=== PATIENT | male | born 1945 | race Two or more races ===

== ENCOUNTER 2018-05-27 16:35 | Inpatient (IN) | payer MEDICARE, MEDICAID ==
[~2018-05-27] VITALS: Ht 162.6 cm; Wt 62.1 kg
--- NOTE | 2018-05-27 16:41 | NUR ---
PT PAULINE FROM [facility] FOR DIZZINESS AND SOB, PT AAOX2-3, RESPRIATIONS EVEN AND UNLABORED, NO SOB, NAD NOTED, PT ON MONITOR, VSS, AWAITING ER PROVIDER SIMRANAL
[2018-05-27 17:44] LABS: BASOPHILS # (AUTO) 0.1 /CMM (0.0-0.2); BASOPHILS % (AUTO) 1.2 % (0.0-2.0); EOSINOPHILS % (AUTO) 3.8 % (0.0-6.0); HEMATOCRIT 43 % (39-51); HEMOGLOBIN 14.4 g/dL (13.5-17.5); LYMPHOCYTES # (AUTO) 1.3 /CMM (0.8-4.8); LYMPHOCYTES % (AUTO) 17.1 % (20.0-44.0); MEAN CORPUSCULAR HGB CONC 33 g/dl (31.0-36.0); MEAN CORPUSCULAR VOLUME 92 fL (80-96); MONOCYTES # (AUTO) 0.8 /CMM (0.1-1.30); NEUTROPHILS % (AUTO) 66.9 % (43.0-81.0); PLATELET COUNT (AUTO) 300 /CMM (150-450); RED BLOOD CELL COUNT(AUTO) 4.69 MIL/uL (4.5-6.0); WHITE BLOOD COUNT (AUTO) 7.5 K/uL (4.3-11.0)
[2018-05-27] MEDS ORDERED: methylPREDNISolone SOD SUCC 125 MG/2ML VIAL ONE (17:46)
[2018-05-27 17:52] LABS: CARBON DIOXIDE 28 mmol/L (21-32); CHLORIDE 101 mmol/L (98-107); CREATININE 1.1 mg/dL (0.6-1.3); GLUCOSE 82 mg/dL (74-106); POTASSIUM 3.9 mmol/L (3.5-5.1); SODIUM SERUM 135 mmol/L (136-145); UREA NITROGEN, BLOOD 17 mg/dL (7-18)
[2018-05-27 17:57] LABS: ALANINE AMINOTRANSFERASE 16 U/L (12-78); ALBUMIN 3.8 g/dL (3.4-5.0); ALKALINE PHOSPHATASE 65 U/L (46-116); ASPARTATE AMINOTRANSFERASE 15 U/L (15-37); BILIRUBIN,DIRECT 0.1 mg/dL (0.0-0.2); BILIRUBIN,TOTAL 0.3 mg/dL (0.2-1.0); TOTAL PROTEIN, SERUM 7.2 g/dL (6.4-8.2)
[2018-05-27] MEDS ORDERED: ALBUTEROL FS 2.5 MG/3 ML VIAL.NEB ONE (18:00)
[2018-05-27] MEDS ORDERED: IPRATROPIUM NEB FS 0.5 MG/2.5 ML AMPUL.NEB ONE (18:00)
[2018-05-27] MEDS ORDERED: methylPREDNISolone SOD SUCC 125 MG/2ML VIAL IV ONE (18:00)
[2018-05-27] MEDS ORDERED: IPRATROPIUM NEB FS 0.5 MG/2.5 ML AMPUL.NEB NEB ONE (18:00)
[2018-05-27] MEDS ORDERED: ALBUTEROL FS 2.5 MG/3 ML VIAL.NEB NEB ONE (18:00)
--- NOTE | 2018-05-27 19:17 | NUR ---
CALLED [employer] LABORER PIE BAKERY WAS PAGED.
[2018-05-27] MEDS ORDERED: RANI150C4 PO (20:21)
[2018-05-27] MEDS ORDERED: CYAN100T PO (20:21)
[2018-05-27] MEDS ORDERED: CYCL30DR EACHEYE (20:21)
[2018-05-27] MEDS ORDERED: MYRBETRIQ PO (20:21)
[2018-05-27] MEDS ORDERED: TRAZ150T75 PO (20:21)
[2018-05-27] MEDS ORDERED: CLON0.5T12 PO (20:21)
[2018-05-27] MEDS ORDERED: ALBU18HF2 IH (20:21)
[2018-05-27] MEDS ORDERED: BUSP15TA3 PO (20:21)
[2018-05-27] MEDS ORDERED: AMLO5TAB9 PO (20:21)
[2018-05-27] MEDS ORDERED: ESCI10TA PO (20:21)
[2018-05-27] MEDS ORDERED: OLME5TAB6 PO (20:21)
[2018-05-27] MEDS ORDERED: CALC500T51 PO (20:21)
[2018-05-27] MEDS ORDERED: UMEC1BLS IH (20:21)
[2018-05-27] MEDS ORDERED: MELO-107 PO (20:21)
--- NOTE | 2018-05-27 20:22 | NUR ---
REPORT GIVEN TO CAIT SQUIRES FOR DANIEL FOR 327-2 TELE
[2018-05-27] MEDS ORDERED: MAGNESIUM HYDROXIDE 30 ML UDC PO PRN (20:30)
[2018-05-27] MEDS ORDERED: Z GUARD REMEDY 2 OZ OINT TP PRN (20:30)
[2018-05-27] MEDS ORDERED: ONDANSETRON HCL/PF 4 MG/2 ML VIAL IVP PRN (20:30)
[2018-05-27] MEDS ORDERED: MAG HYDROX/AL HYDROX/SIMETH 30 ML UDC PO PRN (20:30)
[2018-05-27] MEDS ORDERED: ACETAMINOPHEN 325 MG TABLET PO PRN (20:30)
[2018-05-27 20:35] VITALS: BP 166/82
--- NOTE | 2018-05-27 20:35 | NUR ---
CHARGE LOADERBENZOL STILL OPERATOR NOTES PATIENT CAME TO UNIT VIA ZULAY, ALERT, ORIENTED X 3. PATIENT USES THE WALKER TO AMBULATE, WALKER AT BEDSIDE. SOB ON EXERTION. PATIENT ABLE TO VERBALIZE NEEDS. PATIENT REPORTS THAT HE IS RESIDING IN [facility] BUT WAS IN [facility] IN [place] FOR AN INDIVIDUALIZED PROGRAM FOR HIS MENTAL PROBLEMS. SKIN ASSESSMENT DONE. PATIENT HAS SCABS ON HEAD, FOREHEAD AND CHEEK, HE SAID HE HAS BEEN SCRATCHING IT. PICTURES TAKEN, ATTACHED TO CHART. ORIENTED TO CALL VILLANUEVA, PLACED WITHIN EASY REACH. BED IN LOW, LOCKED POSITION. WILL CONTINUE TO MONITOR ACCORDINGLY
--- NOTE | 2018-05-27 20:45 | NUR ---
CUSTOMER EXPERIENCE ASSOCIATE NOTES TELE MONITOR IN PLACE, SINUS RHYTHM 97
[2018-05-27] MEDS: ENOXAPARIN SODIUM 40 MG/0.4 ML DISP.SYRIN SQ SCH (21:17)
--- NOTE | 2018-05-27 22:25 | NUR ---
GROUP WORKER NOTES MRSA SWAB DONE. URINE SAMPLE COLLECTED AND SENT TO LAB
[2018-05-27 22:40] LABS: APPEARANCE,URINE CLEAR (CLEAR); BILIRUBIN,URINE NEGATIVE (NEGATIVE); BLOOD, URINE NEGATIVE Ery/uL (NEGATIVE); COLOR,URINE YELLOW (YELLOW); KETONES,URINE NEGATIVE (NEGATIVE); LEUKOCYTE ESTERASE ,URINE NEGATIVE (NEGATIVE); NITRITE, URINE NEGATIVE (NEGATIVE); PH,URINE 6.5 (5.0-8.0); PROTEIN,URINE NEGATIVE (NEGATIVE); UGLUCOSE 3+ mg/dL (NEGATIVE); UROBILINOGEN,URINE 0.2 EU/dL (0.2)
[2018-05-27 22:45] LABS: BACTERIA,URINE Few /HPF (None Seen); SQUAMOUS EPITHELIAL CELL,UR Rare /HPF (None Seen)
[2018-05-27] MEDS: ZOLPIDEM TARTRATE 5 MG TABLET PO PRN (23:30)
[2018-05-28] VITALS: BP 136/76
[2018-05-28 04:00] VITALS: BP 139/75
--- NOTE | 2018-05-28 06:45 | NUR ---
LINDERMAN OPERATOR CLOSING NOTES PATIENT RESTING IN BED, ALERT AND ORIENTED X 3. BREATHING EVEN AND UNLABORED. NO COMPLAINTS OF PAIN OR DISCOMFORT OF THIS TIME. ON O2 VIA NC AT 2LPM, NEEDED. IV ON LAC G#20, INTACT AND PATENT. TELE MONITOR IN PLACE, SINUS RHYTHM 76. ALL NEEDS ATTENDED TO. ALL DUE MEDICATIONS GIVEN ORDERED. CALL VILLANUEVA WITHIN REACH. BED IN LOW, LOCKED POSITION. WILL ENDORSE DANIEL TO ONCOMING RN.
[2018-05-28] MEDS: ALBUTEROL FS 2.5 MG/0.5 ML VIAL.NEB NEB SCH ×4 (07:24→19:39)
[2018-05-28] MEDS: IPRATROPIUM NEB FS 0.5 MG/2.5 ML AMPUL.NEB NEB SCH ×4 (07:24→19:39)
--- NOTE | 2018-05-28 07:41 | NUR ---
AUTOMOTIVE ELECTRICAL FITTER OPENING NOTE RECEIVED PT IN BED, ALERT AND ORIENTED X4. DENIES N/V, CHEST PAIN, SOB. BREATHING IS EVEN AND UNLABORED ON ROOM AIR, NC AT THE BEDSIDE PRN FOR SOB. PT ON VOICE AND DATA TECHNICIAN, SR W/ PAC, HR 75. L AC #20G IV IS SALINE LOCKED WITHOUT REDNESS OR SWELLING. REVIEWED UNIT ORIENTATION AND USE OF CALL LIGHT WITH PT WHO VERBALIZED UNDERSTANDING. ALL NEEDS ATTENDED TO, BED IS LOCKED AND IN LOWEST POSITION, SIDE RAILS UP X2, BED ALARM ON, CALL LIGHT WITHIN REACH.
[2018-05-28 07:43] LABS: BASOPHILS % (AUTO) 0.3 % (0.0-2.0); HEMATOCRIT 42 % (39-51); HEMOGLOBIN 13.7 g/dL (13.5-17.5); LYMPHOCYTES # (AUTO) 0.8 /CMM (0.8-4.8); MEAN CORPUSCULAR HGB CONC 33 g/dl (31.0-36.0); MEAN CORPUSCULAR VOLUME 91 fL (80-96); MONOCYTES # (AUTO) 0.1 /CMM (0.1-1.30); MONOCYTES % (AUTO) 1.4 % (2.0-12.0); NEUTROPHILS # (AUTO) 7.8 /CMM (1.8-8.9); NEUTROPHILS % (AUTO) 89.3 % (43.0-81.0); PLATELET COUNT (AUTO) 293 /CMM (150-450); RED BLOOD CELL COUNT(AUTO) 4.58 MIL/uL (4.5-6.0); WHITE BLOOD COUNT (AUTO) 8.8 K/uL (4.3-11.0)
[2018-05-28 07:55] LABS: CALCIUM, SERUM 8.9 mg/dL (8.5-10.1); CARBON DIOXIDE 26 mmol/L (21-32); CHLORIDE 100 mmol/L (98-107); CREATININE 0.9 mg/dL (0.6-1.3); GLUCOSE 143 mg/dL (74-106); MAGNESIUM 1.9 mg/dL (1.8-2.4); PHOSPHORUS 3.4 mg/dL (2.5-4.9); POTASSIUM 4.4 mmol/L (3.5-5.1); SODIUM SERUM 133 mmol/L (136-145); UREA NITROGEN, BLOOD 18 mg/dL (7-18)
[2018-05-28 08:00] VITALS: BP 136/78
[2018-05-28 08:09] LABS: CHOLESTEROL 129 mg/dL (<200); HDL CHOLESTEROL 75 mg/dL (40-60); LDL 53 mg/dL (0-99); THYROID STIMULATING HORMONE 1.088 uIU/mL (0.358-3.74); TRIGLYCERIDES 30 mg/dL (30-150)
[2018-05-28] MEDS: methylPREDNISolone SOD SUCC 40 MG/ML VIAL IV SCH ×3 (08:26→16:20)
[2018-05-28 08:38] LABS: BAND % (MANUAL) 3 % (0.0-5.0); LYMPHOCYTES % (MANUAL) 7 % (16-48); MONOCYTES % (MANUAL) 1 % (0-11.0); NEUTROPHILS % (MANUAL) 89 (42-76)
--- NOTE | 2018-05-28 09:04 | NUR ---
WOUND CARE CONSULT: PT PRESENTS WITH SCRATCH BEARD ON FOREHEAD AND TOP OF HEAD. PT STATES THAT HE SCRATCHES HIS SKIN. PT CONTINENT AT THIS TIME AND ABLE TO ASSIST WITH TURNING AND REPOSITIONING IN BED. WILL SEE PRN. RECOMMENDATIONS MADE FOR SKIN PROTECTION. MD IN AGREEMENT WITH PLAN OF CARE.
--- NOTE | 2018-05-28 11:00 | NUR ---
DAM TENDER NOTE AT THE BEDSIDE TO EVALUATE PT, REQUESTED HOME MED RECON TO BE COMPLETED PER SHE WILL COMPLETE.
--- NOTE | 2018-05-28 11:45 | NUR ---
MS RN NOTE SPOKE WITH JOSE FROM [facility] REQUESTED BY THE PT. PER JOSE, THE STAFF IS AWARE OF PT BEING AT [facility]. INFORMED PT.
--- NOTE | 2018-05-28 13:12 | NUR ---
MS RN NOTE CONTACTED DR. MANDUJANO REGARDING PT REQUEST FOR PRN FOR ANXIETY. AWAITING RESPONSE.
--- NOTE | 2018-05-28 13:18 | NUR ---
MS RN NOTE ASSISTED PT TO WALK DOWN HALLWAY WITH WALKER REQUESTED BY PT FOR ANXIETY AND RESTLESSNESS. THE PT WAS ASSISTED BACK TO THE CHAIR AT HIS BEDSIDE WITHOUT INCIDENT. NC REPLACED, AND CALL LIGHT WITHIN REACH.
[2018-05-28] MEDS: HYDROCODONE/APAP 5/325MG 1 EACH TABLET PO PRN (14:10)
--- NOTE | 2018-05-28 14:35 | NUR ---
Social service consult requested by REHAN Lyles due to pt. coming from [facility]. Pt. is a 73 year old male who was admitted to [facility] for COPD Exacerbation. MICHELLE met with pt. bedside. Pt. was sitting on his bed watching TV. Pt. is alert and oriented x 3. Pt. is soft spoken and appears anxious. Pt. states he resides at [facility] care located at [address] [place] [address] [place] [address] [facility] and care Component Assembler is Traci . Pt. states he receives outpatient mental health services at [facility]. Pt. states he has a diagnosis of Anxiety and Depression and takes mediation, however he cannot remember the names of the medication. Pt. denies any suicidal and homicidal ideations and visual/auditory hallucinations at this time. Pt. states, he would like to go back to his [facility] and care once he is medically cleared. MICHELLE updated window caser Roxie Baez regarding pt's discharge plan.
--- NOTE | 2018-05-28 14:36 | NUR ---
MS RN PAGED [employer] PAGED [employer] FOR REGARDING HOME MED RECON AND PT REQUEST FOR MEDICATION FOR ANXIETY, AWAITING RESPONSE.
--- NOTE | 2018-05-28 15:06 | NUR ---
MS RN NOTE PT STATED HE HAS NOT HAD A BM FOR THREE DAYS, OFFERED MILK OF MAG ORDERED FOR CONSPITATION AND PROVIDED EDUCATION REGARDING USE OF PRUNE JUICE, AMBULATION, AND ENCOURAGING FLUID INTAKE. PT STATED HE WOULD LIKE TO TRY DRINKING PRUNE JUICE FIRST PRIOR TO PRN MEDICATION. THE NURSE PROVIDED PRUNE JUICE REQUESTED, WILL CONTINUE TO MONITOR.
--- NOTE | 2018-05-28 15:13 | NUR ---
MS RN NOTE SPOKE WITH AND RECEIVED ORDERS FOR ATIVAN 0.5MG PO Q15 FOR ANXIETY, CONFIRMED VIA TELEPHONE READ BACK. PER SHE WILL DO THE HOME MEDICATION RECON WELL.
[2018-05-28] MEDS ORDERED: LORAZEPAM 0.5 MG TABLET PO PRN (15:30)
[2018-05-28 16:00] VITALS: BP 122/68
--- NOTE | 2018-05-28 18:39 | NUR ---
MS RN CLOSING NOTE PT IN BED, ALERT AND ORIENTED X4. DENIES N/V, CHEST PAIN, SOB. BREATHING IS EVEN AND UNLABORED ON 1L NC. L AC #20G IV IS SALINE LOCKED WITHOUT REDNESS OR SWELLING. REVIEWED UNIT ORIENTATION AND USE OF CALL LIGHT WITH PT WHO VERBALIZED UNDERSTANDING. ADLS PROVIDED, PT ASSISTED TO REPOSITION Q2H FOR THE DURATION OF THE SHIFT. ALL NEEDS ATTENDED TO, BED IS LOCKED AND IN LOWEST POSITION, SIDE RAILS UP X2, BED ALARM ON, CALL LIGHT WITHIN REACH. WILL ENDORSE TO FORENSIC SPECIALIST NURSE FOR CONTINUITY OF CARE.
--- NOTE | 2018-05-28 19:45 | NUR ---
MS RN NOTES RECEIVED PATIENT IN BED, ALERT AND ORIENTED X4. DENIES N/V, CHEST PAIN, SOB. BREATHING IS EVEN AND UNLABORED ON 1L NC. L AC #20G IV IS SALINE LOCKED WITHOUT REDNESS OR SWELLING. REVIEWED UNIT ORIENTATION AND USE OF CALL LIGHT WITH PT WHO VERBALIZED UNDERSTANDING. BED IS LOCKED AND IN LOWEST POSITION, SIDE RAILS UP X2, BED ALARM ON, CALL LIGHT WITHIN REACH. WILL MONITOR ACCORDINGLY
[2018-05-28 20:22] VITALS: BP 153/84
[2018-05-28] MEDS: ENOXAPARIN SODIUM 40 MG/0.4 ML DISP.SYRIN SQ SCH (21:31)
[2018-05-28 22:00] VITALS: BP 153/84
[2018-05-28] MEDS ORDERED: clonazePAM 0.5 MG TABLET PO PRN (22:30)
[2018-05-29] MEDS: ZOLPIDEM TARTRATE 5 MG TABLET PO PRN ×2 (00:18→23:01)
[2018-05-29] MEDS ORDERED: ALBUTEROL FS 2.5 MG/3 ML VIAL.NEB NEB PRN (01:30)
--- NOTE | 2018-05-29 07:03 | NUR ---
MS RN NOTES PATIENT IN BED, ALERT AND ORIENTED X4. DENIES N/V, CHEST PAIN, SOB. BREATHING IS EVEN AND UNLABORED ON 1L NC. L AC #20G IV IS SALINE LOCKED WITHOUT REDNESS OR SWELLING. REVIEWED UNIT ORIENTATION AND USE OF CALL LIGHT WITH PT WHO VERBALIZED UNDERSTANDING. BED IS LOCKED AND IN LOWEST POSITION, SIDE RAILS UP X2, BED ALARM ON, CALL LIGHT WITHIN REACH. WILL ENDORSE TO AM NURSE FOR CONTINUITY OF CARE.
[2018-05-29 08:00] VITALS: BP 146/78
[2018-05-29 08:02] LABS: BASOPHILS # (AUTO) 0.1 /CMM (0.0-0.2); BASOPHILS % (AUTO) 0.3 % (0.0-2.0); HEMATOCRIT 34 % (39-51); HEMOGLOBIN 11.3 g/dL (13.5-17.5); LYMPHOCYTES # (AUTO) 1.8 /CMM (0.8-4.8); LYMPHOCYTES % (AUTO) 8.4 % (20.0-44.0); MEAN CORPUSCULAR HGB CONC 33 g/dl (31.0-36.0); MEAN CORPUSCULAR VOLUME 92 fL (80-96); MONOCYTES # (AUTO) 2.8 /CMM (0.1-1.30); MONOCYTES % (AUTO) 13.1 % (2.0-12.0); NEUTROPHILS # (AUTO) 16.5 /CMM (1.8-8.9); NEUTROPHILS % (AUTO) 78.2 % (43.0-81.0); PLATELET COUNT (AUTO) 341 /CMM (150-450); RED BLOOD CELL COUNT(AUTO) 3.73 MIL/uL (4.5-6.0)
[2018-05-29] MEDS: ALBUTEROL FS 2.5 MG/0.5 ML VIAL.NEB NEB SCH ×4 (08:02→20:07)
[2018-05-29] MEDS: IPRATROPIUM NEB FS 0.5 MG/2.5 ML AMPUL.NEB NEB SCH ×4 (08:02→20:07)
[2018-05-29 08:07] LABS: CALCIUM, SERUM 8.6 mg/dL (8.5-10.1); CARBON DIOXIDE 25 mmol/L (21-32); CHLORIDE 101 mmol/L (98-107); CREATININE 0.8 mg/dL (0.6-1.3); GLUCOSE 94 mg/dL (74-106); MAGNESIUM 1.7 mg/dL (1.8-2.4); PHOSPHORUS 2.9 mg/dL (2.5-4.9); POTASSIUM 4.4 mmol/L (3.5-5.1); SODIUM SERUM 135 mmol/L (136-145); UREA NITROGEN, BLOOD 53 mg/dL (7-18)
[2018-05-29] MEDS ORDERED: busPIRone HCL 10 MG TABLET PO SCH (09:00)
[2018-05-29] MEDS: busPIRone 5 MG TABLET PO SCH ×4 (09:07→21:07)
[2018-05-29] MEDS: HYDROCODONE/APAP 5/325MG 1 EACH TABLET PO PRN (09:07)
[2018-05-29] MEDS: methylPREDNISolone SOD SUCC 40 MG/ML VIAL IV SCH (09:07)
[2018-05-29] MEDS: ESCITALOPRAM OXALATE (10 MG) 10 MG TABLET PO SCH (09:07)
[2018-05-29] MEDS: FAMOTIDINE (20 MG) 20 MG TABLET PO SCH (09:08)
[2018-05-29] MEDS: CYANOCOBALAMIN 100 MCG TABLET PO SCH (09:08)
[2018-05-29] MEDS: AMLODIPINE BESYLATE 5 MG TABLET PO SCH (09:08)
[2018-05-29] MEDS: CALCIUM CARBONATE (1250) 500 MG TABLET PO SCH (09:08)
[2018-05-29] MEDS: Magnesium 1GM/D5W 100ML PREMIX 100 ML IV SCH ×2 (13:01→13:14)
--- NOTE | 2018-05-29 15:30 | NUR ---
IV LEAKING AND INFILTRATED . CHARGE NURSE AND DR. Jg HAY NOTIFIED . PER PHONE ORDER BY DR. Gregorio, LUIS STOP IVPB'S AND GIVE PO MAG [phone] BID . ISSA ON LEFT ARM REMOVED. CATHETER INTACT . NO PAIN OR TENDERNESS TO THE SITE.
[2018-05-29 16:00] VITALS: BP 158/86
[2018-05-29] MEDS: MAGNESIUM OXIDE 400 MG TABLET PO SCH ×2 (16:36→16:50)
--- NOTE | 2018-05-29 19:30 | NUR ---
RN NOTES RECEIVED PT. AWAKE ON BED, A/OX3, DENIES PAIN, NO SOB, CALL LIGHT WITHIN REACH, [id number], CONTINUE TO MONITOR
[2018-05-29 20:00] VITALS: BP 122/71
[2018-05-29] MEDS: ENOXAPARIN SODIUM 40 MG/0.4 ML DISP.SYRIN SQ SCH (21:08)
[2018-05-29] MEDS ORDERED: TRAZODONE 50 MG TABLET PO SCH (22:00)
--- NOTE | 2018-05-29 23:03 | NUR ---
RN NOTES PT. ASKED FOR SLEEPING PILL- AMBIEN 5 MG PO GIVEN ORDERED, V/S STABLE
--- NOTE | 2018-05-30 06:45 | NUR ---
RN NOTES SLEEPING BUT AROUSABLE, DENIES PAIN, NO SOB, MORNING CARE RENDERED, PT. NEEDS ATTENDED
[2018-05-30 07:19] LABS: CALCIUM, SERUM 8.3 mg/dL (8.5-10.1); CARBON DIOXIDE 29 mmol/L (21-32); CHLORIDE 103 mmol/L (98-107); GLUCOSE 87 mg/dL (74-106); MAGNESIUM 2.1 mg/dL (1.8-2.4); PHOSPHORUS 3.2 mg/dL (2.5-4.9); POTASSIUM 4.3 mmol/L (3.5-5.1); SODIUM SERUM 138 mmol/L (136-145); UREA NITROGEN, BLOOD 31 mg/dL (7-18)
[2018-05-30] MEDS: ALBUTEROL FS 2.5 MG/0.5 ML VIAL.NEB NEB SCH ×3 (07:41→13:38)
[2018-05-30] MEDS: IPRATROPIUM NEB FS 0.5 MG/2.5 ML AMPUL.NEB NEB SCH ×3 (07:41→13:38)
[2018-05-30 08:00] VITALS: BP 132/74
--- NOTE | 2018-05-30 08:00 | NUR ---
m/s counter control operator: initial assessment received pt in bed awake, a/ox3. no c/o sob or any discomfort. instructed to call for assistance. will continue to monitor.
[2018-05-30] MEDS: busPIRone 5 MG TABLET PO SCH ×3 (08:29→16:46)
[2018-05-30] MEDS: ESCITALOPRAM OXALATE (10 MG) 10 MG TABLET PO SCH (08:29)
[2018-05-30] MEDS: AMLODIPINE BESYLATE 5 MG TABLET PO SCH (08:30)
[2018-05-30] MEDS: MAGNESIUM OXIDE 400 MG TABLET PO SCH ×2 (08:30→16:46)
[2018-05-30] MEDS: FAMOTIDINE (20 MG) 20 MG TABLET PO SCH (08:31)
[2018-05-30] MEDS: CYANOCOBALAMIN 100 MCG TABLET PO SCH (08:31)
[2018-05-30] MEDS ORDERED: predniSONE 20 MG TABLET PO SCH (09:00)
[2018-05-30] MEDS: CALCIUM CARBONATE (1250) 500 MG TABLET PO SCH (09:05)
--- NOTE | 2018-05-30 12:00 | NUR ---
m/s transformer coil winder: notes lunch served. pt sitting up at the edge of the bed. instructed to call for assistance. will continue to monitor.
--- NOTE | 2018-05-30 13:57 | NUR ---
RT NOTE PT BREATHING TX GIVEN EARLY DUE TO WHEEZING UPON AUSCULTATION. PT REQUEST WELL DUE TO FEELING SOB AFTER STANDING. NO DISTRESS NOTED. PT AWAKE AND ALERT. RN AWARE. Addendum: 05/30/18 at 1359 by HARITHA GERONIMO RT Amended: Links added.
--- NOTE | 2018-05-30 15:00 | NUR ---
m/s pipe stripper: notes harinder (case management) called and informed me that pt is for d'c planning to [facility] [place] ([phone]) B&C networking administrator is aware and wants pt to go to rehab and then back to board and care. dr. chery will put the order in per case management. awaiting order. pt made aware.
[2018-05-30 15:49] VITALS: BP 108/67
--- NOTE | 2018-05-30 15:50 | NUR ---
m/s cryptographic center specialist: notes report given to melba (rn mainspring fabrication supervisor) for continuity of care.
--- NOTE | 2018-05-30 17:00 | NUR ---
m/s sql server consultant: notes dr. chery inserting order to discharge pt and left message re: d'c to snf instead of home.
[2018-05-30] MEDS ORDERED: METH4TAB17 PO (17:04)
--- NOTE | 2018-05-30 17:50 | NUR ---
m/s field staff: notes dr. chery notified and order change to d'c pt to snf. order read back and carried out and acknowledged. discharged instructions given to pt and verbalized understanding. ambulance here and report given to one of the crew.
--- NOTE | 2018-05-30 18:10 | NUR ---
m/s healthcare administrative assistant: discharged discharged to snf via gurney accompanied by 2 ambulance crew in stable condition with all d'c papers and belongings including his own walker.
== END 2018-05-30 18:05 | DRG 191 ==
LOC: ER 16:37 → TELE 19:56 → MED 05-28 11:19
PROVIDERS: ADMIT Nurse Practitioner Acute Care; ATTEND Nurse Practitioner Acute Care
DX: J44.1 Chronic obstructive pulmonary disease with (acute) exacerbation (principal); E87.1 Hypo-osmolality and hyponatremia; I10 Essential (primary) hypertension; Z87.891 Personal history of nicotine dependence; E86.1 Hypovolemia; N40.0 Benign prostatic hyperplasia without lower urinary tract symptoms; D72.829 Elevated white blood cell count, unspecified; T38.0X5A Adverse effect of glucocorticoids and synthetic analogues, initial encounter; Y92.230 Patient room in hospital as the place of occurrence of the external cause; M19.90 Unspecified osteoarthritis, unspecified site; F41.9 Anxiety disorder, unspecified; I70.0 Atherosclerosis of aorta
CPT/HCPCS: 36415; 71045-TC; 80048-TC; 80061-TC; 80076-TC; 81000-TC; 83735-TC; 83880; 84100-TC; 84443-TC; 84484-TC; 85025-TC; 85730-TC; 87081-TC; 94799-TC; G0378; J1650; J2405; J2920; J2930; J3475; J7050